=== PATIENT | female | born 2000 | race Caucasian/White ===

== ENCOUNTER 2019-09-25 15:08 | Emergency (ER) | payer OTHER, MEDICAID, SELFPAY ==
--- NOTE | ~2019-09-25 | XR_ITS ---
EXAMINATION: XR chest 2V 09/25/2019 16:02 INDICATION: Cough for 5 days PROCEDURE: 2 view chest COMPARISON: 08/03/2019 FINDINGS: The lungs are clear. The cardiomediastinal silhouette is within normal limits. There are no pleural effusions. There is no pneumothorax suspected. IMPRESSION: 1: NO ACUTE CARDIOPULMONARY DISEASE. Reviewed, dictated and finalized at location A. [employer]
[2019-09-25 15:21] VITALS: BP 114/82; PULSE 100; RESP 16; TEMP 37.9; O2SAT 100
--- NOTE | 2019-09-25 18:36 | ED.URI ---
HPI - URI/Sore Throat General Chief Complaint: Upper Respiratory Infection Stated Complaint: cough/fever/vomiting Source: patient and RN notes reviewed Mode of arrival: ambulatory Limitations: no limitations History of Present Illness HPI Narrative: The patient, a non-smoker/nondrinker hospital employee with [employer] , presents with a 5-day history of persistent cough. While at work she was tested and had negative strep test and influenza swab. Symptoms are associated with fever to 102 and are mild, unrelieved with prednisone and amoxicillin that she took . No sputum changes, earache, hoarseness, significant sore throat; symptoms worse at night/upon awakening the morning Related Data Home Medications Medication Instructions Recorded Confirmed fluoxetine 20 mg PO DAILY 09/25/19 09/25/19 Allergies Allergy/AdvReac Type Severity Reaction Status Date / Time sulfamethizole Allergy Unknown Skin Verified 09/25/19 15:29 Reaction Gadolinium-Containing Allergy Anaphylaxis Verified 09/25/19 15:29 Contrast Medi Review of Systems Review of Systems: Narrative: General/Constitutional: No weight loss,fever Eyes: N0: Redness,discharge Ears/Nose/Throat: No: Epistaxis,ear discharge Respiratory: Denies: Hemoptysis Gastrointestinal: No Vomiting, Bleeding-rectal Skin: No Lumps, eruption Neurologic: No Focal Weakness,Sz Hematologic: Denies: Petechiae/Purpura Psychiatric: No: Suicida ideationl All Other Systems: Reviewed and Negative [facility] Family History Family History (Updated 11/13/17 @ 14:14 by DOCTOR UNKNOWN) Mother Family history of cystic fibrosis Grandparent Family history of cardiovascular disease Social History Social History Smoking status: Never smoker Comments At time of signature, agree with nursing past medical, surgical, social and family history. There is no relevant family history pertinent to the presenting complaint Exam Narrative: Exam Narrative: General Appearance: Well appearing, Well nourished EYE: PERRLA, Conjunctiva clear Ears: Auditory canal normal, TM normal Nose: Rhinorrhea, Mucousal erythema Mouth/Throat: MM moist, Uvula midline, Pharyngeal erythema (with rare wheeze] Neck: Supple, No adenopathy Respiratory: No respiratory distress, Breath sounds equal, Clear to auscultation Cardiovascular: RRR, No JVD Musculoskeletal: Non tender, Normal strength Skin: Warm, Dry Neurological: A&O x3, CN II-XII intact Psychiatric: Normal mood, Normal affect Course Vital Signs Vital signs: Vital Signs Temperature 100.2 F H 09/25/19 15:21 Pulse Rate 100 09/25/19 15:21 Respiratory Rate 16 09/25/19 15:21 Blood Pressure 114/82 09/25/19 15:21 Pulse Oximetry 100 09/25/19 15:21 Temperature 100.2 F H 09/25/19 15:21 Pulse Rate 100 09/25/19 15:21 Respiratory Rate 16 09/25/19 15:21 Blood Pressure 114/82 09/25/19 15:21 Pulse Oximetry 100 09/25/19 15:21 Discharge Plan Discharge Clinical Impression: Upper respiratory infection Qualifiers: URI type: acute laryngotracheitis Qualified Code(s): J04.2 - Acute laryngotracheitis Patient Disposition: Home, Self-Care Condition: Stable Instructions: Antibiotic Form, Acute Bronchitis (ED) Prescriptions: New azithromycin 250 mg tablet See Rx Instructions .ROUTE .COMPLEX Qty: 6 RF: 0 benzonatate [Tessalon Perles] 100 mg capsule 100 mg PO TID Qty: 20 RF: 1 codeine-guaifenesin 10-100 mg/5 mL liquid 7.5 ml PO Q6H PRN (Reason: cough) Qty: 118 RF: 0 prednisone 20 mg tablet 60 mg PO DAILY Qty: 15 RF: 0 albuterol sulfate 2.5 mg /3 mL (0.083 %) solution for nebulization 2.5 mg INHALATION Q4H PRN (Reason: shortness of breath or wheezing) Qty: 75 RF: 0 No Action fluoxetine 20 mg tablet 20 mg PO DAILY RF: 0 Follow-up/Referrals: UNKNOWN,DOCTOR [Primary Care Provider] - Stand Alone Forms: Work/School Release IP Discharge Date/Time: 09/25/19 16:46
== END 2019-09-25 16:46 | disposition home or self-care (01) ==
PROVIDERS: Emergency Provider Emergency Medicine
DX: J04.2 Acute laryngotracheitis (principal)
CPT/HCPCS: 71046; 99213; G0463

== ENCOUNTER 2023-02-04 04:11 | Emergency (ER) | payer OTHER, MEDICAID, SELFPAY ==
[2023-02-04] VITALS (16 sets, daily range): BP systolic 99–139; BP diastolic 61–93; PULSE 72–117; RESP 15–20; TEMP 36.4–36.8; O2SAT 93–100
--- NOTE | ~2023-02-04 | CT_ITS ---
EXAMINATION: CT abdomen pelvis w con INDICATION: Abdominal pain TECHNIQUE: Computed tomographic images of the abdomen and pelvis were obtained after the administrati on of 100 cc of Omnipaque 350 intravenous contrast. The dose-length product (DLP) was 351.56 mGy-cm. Automated exposure control and iterative reconstruction technique were employed. COMPARISON: None available FINDINGS: The lung bases are clear. The heart size is normal. The liver, pancreas, gallbladder, and a drenal glands are normal. There is a 10 mm hypoattenuating lesion of the spleen, likely cyst or lymph angioma. The kidneys are unremarkable. No pathologically enlarged abdominal or pelvic lymph nodes are identified. No free intraperitoneal gas or evidence of bowel obstruction. The appendix is normal. Th ere is liquid stool in the colon to the level of the rectum. A corpus luteum is noted in the right ov elin. IMPRESSION: 1. Liquid stool in colon to the level of the rectum, consistent with diarrhea. Reviewed, dictated and finalized at location A.
--- NOTE | 2023-02-04 04:34 | ECG_ITS ---
Measurements Intervals [place] Rate: 84 P: 41 AK: 133 QRS: 75 QRSD: 89 T: 19 QT: 364 QTc: 432 Interpretive Statements SINUS RHYTHM NONSPECIFIC T-WAVE ABNORMALITY- ANTERIOR LEADS BORDERLINE ECG NO PREVIOUS ECG AVAILABLE FOR COMPARISON Electronically Signed On 02-04-2023 7:16:33 CDT by Guzman Phillip D.O.
[2023-02-04] MEDS: KETOROLAC 15 MG/ML VIAL (*BKC) IV PUSH (05:14)
[2023-02-04] MEDS: SODIUM CHLORIDE 0.9% IV 2,000 ML 999 ML IV CONT (05:15)
[2023-02-04] MEDS: ONDANSETRON INJ 4 MG/2 ML VIAL IV PUSH (05:15)
[2023-02-04] MEDS: ACETAMINOPHEN 500 MG TABLET 1000 MG PO (05:16)
[2023-02-04 05:35] LABS: Basophils Percent Auto 0.2 % (0.2-1.2); Eosinophils Absolute Auto 0.1 K/mm3 (0-0.3); Eosinophils Percent Auto 1.3 % (0-4.4); Hematocrit 45.8 % (37.0-47.0); Hemoglobin 15.2 g/dL (12.0-15.0); Immature Granulocyte Absolute 0.01 K/mm3 (0.00-0.031); Immature Granulocyte Percent A 0.2 % (0-0.5); Immature Platelet Fraction Pct 3.1 % (0.9-11.2); Lymphocytes Absolute Auto 1.38 K/mm3 (0.9-3.2); Lymphocytes Percent Auto 22.3 % (18.3-44.2); Mean Corpuscular HGB Conc 33.2 g/dl (32-36); Mean Corpuscular Hemoglobin 28.7 pg (26-34); Mean Corpuscular Volume 86.4 fl (80-100); Mean Platelet Volume 10.1 fl (7.4-10.4); Monocytes Absolute Auto 0.7 K/mm3 (0.1-0.6); Monocytes Percent Auto 11.3 % (2.6-8.5); Neutrophils Percent Auto 64.7 % (45.5-73.1); Platelet Count Result 341 k/mm3 (150-375); Red Cell Distribution Width 12.9 % (11.5-14.5); White Blood Count 6.2 K/mm3 (4.5-10.0)
--- NOTE | 2023-02-04 05:39 | ED.GENADULT ---
HPI - General Adult General Chief complaint: Abdominal Pain <Chris Sarkar MD - Last Filed: 02/04/23 18:51> Stated complaint: abd pain <Chris Sarkar MD - Last Filed: 02/04/23 18:51> Time Seen by Provider: 02/04/23 04:22 <Chris Sarkar MD - Last Filed: 02/04/23 18:51> History of Present Illness HPI narrative: this is a 22-year-old female presenting ED with a chief complaint of abdominal pain. The pain started 3 days ago it is a crampy pain in the suprapubic area radiates to her back. It is 10 out 10 intensity and constant. She has never extend had pain like this before improves when she curls into a ball. No alleviating factors. Is associated with nausea vomiting diarrhea. She denies fevers chest pain difficulty breathing urinary symptoms or vaginal discharge or irritation. Last menstrual period was January she is due for her next period soon. She is sexually active with 1 partner. No concern for STDs. <Chris Sarkar MD - Last Filed: 02/04/23 18:51> Related Data Home medications: Home Medications Medication Instructions Recorded Confirmed fluoxetine 20 mg tablet 20 mg PO DAILY 09/25/19 09/25/19 <Chris Sarkar MD - Last Filed: 02/04/23 18:51> Allergies/adverse reactions: Allergies Allergy/AdvReac Type Severity Reaction Status Date / Time sulfamethizole Allergy Unknown Skin Verified 09/25/19 15:29 Reaction Gadolinium-Containing Allergy Anaphylaxis Verified 09/25/19 15:29 Contrast Medi <Chris Sarkar MD - Last Filed: 02/04/23 18:51> [facility] Family History Family History: Family History (Updated 11/13/17 @ 14:14 by DOCTOR UNKNOWN) Mother Family history of cystic fibrosis Grandparent Family history of cardiovascular disease <Chris Sarkar MD - Last Filed: 02/04/23 18:51> Social History Social History: Social History Smoking status: Never smoker <Chris Sarkar MD - Last Filed: 02/04/23 18:51> Exam Narrative: APPEARANCE: No apparent distress. Head: atraumatic. EYES: EOMI, NOSE: Atraumatic NECK: Trachea midline RESPIRATORY: No increased rate of breathing CARDIOVASCULAR: RRR, ABDOMINAL: Tenderness in the suprapubic region, the rest of the abdomen is soft nontender with no guarding or rebound. No CVA tenderness. MUSCULOSKELETAl: No obvious deformities NEURO: Alert. Moving 4/4 extremities SKIN:: Warm, dry. Normal color PSYCHIATRIC: Normal affect <Chris Sarkar MD - Last Filed: 02/04/23 18:51> Course Course Emergency Course: 0810: Patient resting comfortably and reports being pain free. Abdomen soft/nontender on repeat exam. Patient educated on lab/imaging findings. Patient reports no concerns for STI. Discussed US for ovarian torsion but patient is pain free, shared decision making occurred and US will not be preformed. Patient feels comfortable with d/c with abx and anti-emetics. <John Song MD - Last Filed: 02/04/23 08:22> Vital Signs Vital signs: Vital Signs Temperature 97.6 F 02/04/23 04:15 Pulse Rate 117 H 02/04/23 04:15 Respiratory Rate 20 02/04/23 04:15 Blood Pressure 120/61 02/04/23 04:15 Pulse Oximetry 97 02/04/23 04:15 Oxygen Delivery Room Air 02/04/23 04:15 Temperature 98.3 F 02/04/23 08:16 Pulse Rate 90 02/04/23 08:16 Respiratory Rate 16 02/04/23 08:16 Blood Pressure 114/93 H 02/04/23 08:16 Pulse Oximetry 93 02/04/23 08:16 Oxygen Delivery Room Air 02/04/23 05:38 <Chris Sarkar MD - Last Filed: 02/04/23 18:51> Vital Signs Temperature 97.6 F 02/04/23 04:15 Pulse Rate 117 H 02/04/23 04:15 Respiratory Rate 20 02/04/23 04:15 Blood Pressure 120/61 02/04/23 04:15 Pulse Oximetry 97 02/04/23 04:15 Oxygen Delivery Room Air 02/04/23 04:15 Temperature 98.3 F 02/04/23 08:16 Pulse Rate 90 02/04/23 08:16 Respiratory Rate 16 02/04/23 08:16 Bl
[2023-02-04] MEDS: METOCLOPRAMIDE HCL INJ 10 MG/2 ML VIAL IV PUSH (05:43)
[2023-02-04 05:44] LABS: Lactic Acid Reflex 0.9 mmol/L (0.7-2.0)
[2023-02-04 05:45] LABS: Alanine Aminotransferase 20 U/L (6-35); Albumin Level 4.9 g/dL (3.5-5.1); Alkaline Phosphatase 64 U/L (38-126); Anion Gap 11 mmol/L (8-16); Aspartate Amino Transferase 29 U/L (14-36); Bilirubin,Total 0.7 mg/dL (0.2-1.3); Blood Urea Nitrogen 14 mg/dL (7-17); Calcium 9.3 mg/dL (8.4-10.2); Carbon Dioxide 24 mmol/L (22-30); Chloride 104 mmol/L (98-107); Estimated CRCL calculation 75 ml/min; Estimated Glomerular Filt Rate > 60; Glucose 99 mg/dL (65-110); Lipase 136 U/L (23-300); Sodium 139 mmol/L (137-145)
--- NOTE | 2023-02-04 05:50 | PC.NURSE ---
pt sts that her LMP was on the second week of January.
[2023-02-04] MEDS: HYDROmorphone HCL INJ (*CRX) 1 MG/ML SYR 0.5 MG IV PUSH (05:59)
--- NOTE | 2023-02-04 06:19 | PC.NURSE ---
pt is axox4, abc are wnl nad.airway is patent,spontaneous and self maintained. pt sts abd suprapubic pain that intermittently radiates to the back. pt sts that she can't walk and sitting in a position. This RN asked for a Urine sample. Pt sts that she can't go. This Rn replied lets try and if you can't go I will need to straight cath you. Mom replied, WE ARE NOT STARTING THIS SHIT! AND I AM THE DIRECTOR OF ALL THE [employer] [facility] [facility] FOR [facility]. Iv established and labs sent. IVF are infusing.
--- NOTE | 2023-02-04 06:25 | PC.NURSE ---
Addendum entered by Lakshmi Jarvis RN 02/04/23 07:03: Mom was found touching pts IV Original Note: Pt attempted to use restroom and could not walk. This RN asked for a HCG add on. new orders placed. Mom is being very rude to ancillary staff. Mom is touching the monitor and stated to this RN that she is going to look into her daughters chart my chart for lab details. Mom was second guess labor relations representative
--- NOTE | 2023-02-04 06:36 | PC.NURSE ---
Pt sts that her pain is now a 3/10 abd. Pt also sts that her nausea is gone
--- NOTE | 2023-02-04 06:40 | PC.NURSE ---
pt was given 0.5 mg IVP dilaudid for pain which was diluted with 5ml of NS and was pushed over 2 minutes. Pt became pale and her eyes became nystagmus that last for about 5 minutes. This Rn explained that she never had diluadid before and had a unwanted affect she would be placed on the monitor.
--- NOTE | 2023-02-04 06:45 | PC.NURSE ---
This Rn walked into the room and the monitor was turned off. This RN turned the monitor back on. notified that pt was become nauseous. No new order received
--- NOTE | 2023-02-04 07:06 | PC.NURSE ---
Pt sts that pain is 2-3/10 for abd lateral pain that radiates to the back
[2023-02-04 07:20] LABS: SPREG INTERNAL CONTROL Positive; Serum Qual hCG Negative
[2023-02-04 07:46] LABS: Bacteria Urine 2+ /hpf; RBC Urine 0-2 /hpf (0-2); Squamous Epithelial Cell Urine Moderate /hpf (Few); WBC Urine 21-50 /hpf
[2023-02-04 07:56] LABS: Appearance Urine Turbid (Clear); Bilirubin Urine Negative (Negative); Blood Urine Negative (Negative); Color Urine Dark Yellow (Yellow); Glucose Urine UA Negative (Negative); Ketones Urine 2+ mg/dL (Negative); Leukocyte Esterase Ur 2+ LEU/UL (Negative); Nitrate Urine Negative (Negative); Protein Urine 1+ mg/dL (Negative); pH Urine 5.5 (5.0-9.0)
[2023-02-04 07:59] LABS: Add Urine Microscopic? YES
== END 2023-02-04 08:28 | disposition home or self-care (01) ==
PROVIDERS: Emergency Provider Emergency Medicine
DX: N39.0 Urinary tract infection, site not specified (principal); R10.30 Lower abdominal pain, unspecified
CPT/HCPCS: 36415; 74177; 80053; 81001; 81025; 83605; 83690; 83735; 84703; 85025; 85055; 87086; 93005; 96361; 96374; 96375; 99284; A9270; J1170; J1885; J2405; J2765; J7030; Q9967